=== PATIENT | female | born 1945 | race Caucasian/White ===

== ENCOUNTER → 2020-02-16 | Outpatient (CLI) | payer MEDICARE | LOC: RAD 10:25 | DX: R10.11 Right upper quadrant pain (principal) ==

== ENCOUNTER 2023-12-14 09:54 | Emergency (ER) | payer MEDICARE ==
[~2023-12-14 09:54] MED LIST: Acetaminophen 325 MG TAB PO ONE; predniSONE 20 MG TAB PO ONE
[2024-01-17 05:43] LABS: HEMATOCRIT 34.9 % (37.0-47.0); HEMOGLOBIN 11.3 g/dL (12.5-16.0); MEAN CELL VOLUME 85 fl (78-100); MEAN CORPUSCULAR HEMOGLOBIN 28 pg (27-31); MEAN CORPUSCULAR HGB CONC 32 g/dL (33-37); MEAN PLATELET VOLUME 10.1 fl (7.4-10.4); PLATELET COUNT 213 K/mm3 (130-400); RED BLOOD COUNT 4.11 M/mm3 (4.10-5.30); RED CELL DISTRIBUTION WIDTH 14.1 % (11.5-14.5); WHITE BLOOD COUNT 12.1 K/mm3 (4.8-10.8)
[2024-01-17 05:44] LABS: ALBUMIN 3.6 g/dL (3.4-4.8); CALCIUM 9.2 mg/dL (8.3-10.5); TOTAL BILIRUBIN 0.4 mg/dL (0.2-1.2); TOTAL PROTEIN 6.6 g/dL (6.2-8.1)
[2024-01-17 05:49] LABS: BAND 6 % (0-10); LYMPHOCYTE 1 % (20-51); MONOCYTE 5 % (3-10); NEUTROPHILS 88 % (42-75)
[2024-01-17 05:50] LABS: PH-URINE 5.5 (5.0 - 8.0); URINE APPEARANCE CLEAR (CLEAR); URINE BILIRUBIN 1+ (NEGATIVE); URINE BLOOD TRACE-INTACT (NEGATIVE); URINE COLOR YELLOW (YELLOW); URINE GLUCOSE NEGATIVE (NEGATIVE); URINE KETONE 2+ (NEGATIVE); URINE LEUKOCYTE ESTERASE NEGATIVE (NEGATIVE); URINE NITRATE NEGATIVE (NEGATIVE); URINE PROTEIN(semi-quant) 2+ (NEGATIVE)
[2024-01-17 05:51] LABS: URINE MUCUS PRESENT (NOT PRESENT); URINE WBC 0-1 /hpf (0-3)
== END 2023-12-14 13:31 | disposition home or self-care (01) ==
LOC: ED 09:54
PROVIDERS: Family Medicine
DX: N39.0 Urinary tract infection, site not specified (principal); M31.6 Other giant cell arteritis
CPT/HCPCS: J7512

== ENCOUNTER → 2023-12-19 | Outpatient (CLI) | payer MEDICARE | LOC: LAB 12:30 | DX: R19.7 Diarrhea, unspecified (principal) ==